=== PATIENT | male | born 1995 | race African-American/Black ===

== ENCOUNTER 2022-12-04 09:49 | Day surgery (SDC) | payer OTHER ==
[2022-12-04] MEDS ORDERED: Oxymetazoline HCl 0.05% (30 ML BOT) ONE ×2 (10:37→11:01)
[2022-12-04] MEDS ORDERED: Fentanyl 250 MCG/5 ML VIAL ONE (10:51)
== END 2022-12-04 11:03 | disposition home or self-care (01) ==
LOC: SDC 09:49
PROVIDERS: ATTEND Specialist
DX: J35.3 Hypertrophy of tonsils with hypertrophy of adenoids (principal); J34.3 Hypertrophy of nasal turbinates; G47.33 Obstructive sleep apnea (adult) (pediatric); Z53.8 Procedure and treatment not carried out for other reasons
CPT/HCPCS: J3010